=== PATIENT | female | born 2000 | race Caucasian/White ===

== ENCOUNTER 2022-04-01 14:07 | Outpatient (CLI) | payer BC, SELFPAY ==
[2022-04-01 22:44] LABS: HIV 1/2/P24 Combo Screen* Negative (Negative)
[2022-04-01 22:51] LABS: Hepatitis C Virus Antibody* Negative (Negative)
[2022-04-01 23:02] LABS: Hepatitis B Surface Antibody* Negative (Negative)
== END 2022-04-01 14:08 | disposition home or self-care (01) ==
PROVIDERS: PCP Family Medicine; Visit Provider Nurse Practitioner Family
DX: T14.8XXA Other injury of unspecified body region, initial encounter (principal)
CPT/HCPCS: 86703; 86706; 86803

== ENCOUNTER 2023-05-04 11:04 | Outpatient (CLI) | payer BC, SELFPAY ==
[2023-05-04 11:21] VITALS: BP 136/69; PULSE 91
[2023-05-04 11:22] VITALS: RESP 16; TEMP 36.7
[2023-05-04 11:36] LABS: Appearance Urine Clear (Clear); Bilirubin Urine Negative (Negative); Blood Urine Negative (Negative); Color Urine Yellow (Yellow); Glucose Urine Negative (Negative); Ketones Urine Negative (Negative); Leukocyte Esterase Urine 1+ (Negative); Nitrite Urine Negative (Negative); Protein Urine Negative (Negative); Urobilinogen Urine 0.2 (0.2-1.0)
[2023-05-04 11:50] LABS: RBC Urine 0-2 (0-2); Squamous Epithelial Cell Urine Few (None-Few)
[2023-05-04 11:54] LABS: Amphetamine Screen Urine Negative (Negative); Barbiturate Screen Urine Negative (Negative); Benzodiazepines Screen Urine Negative (Negative); Cannabinoid Screen Urine POSITIVE (Negative); Cocaine Screen Urine Negative (Negative); Methadone Screen Urine Negative (Negative); Methamphetamines Screen Urine Negative (Negative); Opiate Screen Urine Negative (Negative); Oxycodone Screen Urine Negative (Negative); Phencyclidine Screen Urine Negative (Negative); Tricyclic Antidepressant Urine Negative (Negative)
[2023-05-04 12:38] VITALS: BP 134/81; PULSE 92
[2023-05-04 12:45] LABS: Hematocrit 35.9 % (33.0-51.0); Hemoglobin* 12.3 gm/dL (12.0-16.0); Mean Corpuscular HGB Conc 34 gm/dL (32-36); Mean Corpuscular Hemoglobin 32 pg (26-34); Mean Corpuscular Volume 94 fL (80-100); Platelet Count* 485 K/uL (140-440); Red Blood Count 3.81 m/uL (4.00-5.20); White Blood Count* 15.39 K/uL (4.50-11.00)
[2023-05-04 12:46] LABS: Slide Review Reflex No
--- NOTE | 2023-05-04 12:54 | PC.OBNST ---
NST Note NST Note Start: 05/04/23 11:06 Freq: ONCE Status: Active Protocol: Document 05/04/23 12:52 BREANNA (Rec: 05/04/23 12:54 BREANNA [id number]) NST Note 1 Para (# of births) 0 EDC 05/26/23 Gestational Age In Weeks & Days 36 Weeks & 6 Days Patient Presented with Complaint(s) of Pain If Pain, describe location Right sided pain Reactive Yes Appropriate for Gestational Age Yes RN Nancy Brennan RN Date 05/04/23 Reactive Yes Appropriate for Gestational Age Yes DENIA Hart RN Date 05/04/23 OB NST charge Yes Complete NST Note via Write Note Yes The provider's electronic signature indicates the NST is reactive/appropriate for gestational age. *Note to provider: If an addendum is required, open the patient's chart and click on the note under the Nurse/Allied Health tab.
[2023-05-04 13:04] LABS: Alanine Aminotransferase* 18 U/L (4-35); Aspartate Amino Transferase* 20 U/L (12-35); Blood Urea Nitrogen* 5 mg/dL (5-24); Creatinine* 0.5 mg/dL (0.5-1.5); Estimated Glomerular Filt Rate 135 ml/min
[2023-05-04 13:33] LABS: Total Protein Urine 10 mg/dL
[2023-05-04 13:36] LABS: Creatinine Urine 71.1 mg/dL
--- NOTE | 2023-05-12 09:33 | PC.OBNST ---
NST Note NST Note Start: 05/04/23 11:06 Freq: ONCE Status: Discharge Protocol: Document 05/04/23 12:52 BREANNA (Rec: 05/04/23 12:54 BREANNA [id number]) NST Note 1 Para (# of births) 0 EDC 05/26/23 Gestational Age In Weeks & Days 36 Weeks & 6 Days Patient Presented with Complaint(s) of Pain If Pain, describe location Right sided pain Reactive Yes Appropriate for Gestational Age Yes RN Nancy Brennan RN Date 05/04/23 Reactive Yes Appropriate for Gestational Age Yes DENIA Hart RN Date 05/04/23 OB NST charge Yes Complete NST Note via Write Note Yes The provider's electronic signature indicates the NST is reactive/appropriate for gestational age. *Note to provider: If an addendum is required, open the patient's chart and click on the note under the Nurse/Allied Health tab.
== END 2023-05-04 12:45 | disposition home or self-care (01) ==
LOC: OB OUT 11:04 → OB 11:05
PROVIDERS: PCP Surgery; Visit Provider Family Medicine
DX: O47.03 False labor before 37 completed weeks of gestation, third trimester (principal); Z3A.36 36 weeks gestation of pregnancy
CPT/HCPCS: 36415; 59025; 80306; 81003; 81015; 82565; 82570; 84156; 84450; 84460; 84520; 85027; 87086; G0463

== ENCOUNTER 2023-05-18 10:04 | Inpatient (IN) | payer BC, SELFPAY ==
[2023-05-18] VITALS (37 sets, daily range): BP systolic 108–148; BP diastolic 58–89; PULSE 90–121; RESP 16–18; TEMP 36.5–37; O2SAT 94–100
[2023-05-18 09:57] LABS: Amnisure Rom* POSITIVE
[2023-05-18 10:42] LABS: Basophils Percent Auto 0.3 % (0.0-3.0); Eosinophils Percent Auto 1.8 % (0.0-7.0); Hematocrit 36.8 % (33.0-51.0); Hemoglobin* 12.5 gm/dL (12.0-16.0); Immature Granulocytes Pct Auto 1.1 %; Lymphocytes Percent Auto 14.6 % (20-44); Mean Corpuscular HGB Conc 34 gm/dL (32-36); Mean Corpuscular Hemoglobin 32 pg (26-34); Mean Corpuscular Volume 94 fL (80-100); Monocytes Percent Auto 5.9 % (0.0-11.0); Neutrophils Percent Auto 76.3 % (42.0-72.0); Platelet Count* 485 K/uL (140-440); RDW Coefficient of Variation % 13.1 % (11.5-15.5); Red Blood Count 3.93 m/uL (4.00-5.20)
[2023-05-18] MEDS: AMPICILLIN 2 GM in 0.9 % SODIUM CHLORIDE Mini-bag 100 ML IVPB (10:46)
[2023-05-18 10:51] LABS: Slide Review Reflex No
[2023-05-18 13:06] LABS: Amphetamine Screen Urine Negative (Negative); Barbiturate Screen Urine Negative (Negative); Benzodiazepines Screen Urine Negative (Negative); Cannabinoid Screen Urine POSITIVE (Negative); Cocaine Screen Urine Negative (Negative); Methadone Screen Urine Negative (Negative); Methamphetamines Screen Urine Negative (Negative); Opiate Screen Urine Negative (Negative); Oxycodone Screen Urine Negative (Negative); Phencyclidine Screen Urine Negative (Negative); Tricyclic Antidepressant Urine Negative (Negative)
--- NOTE | 2023-05-18 14:14 | P.OBHP_ITS ---
OB - H&P: HPI Labor/Induction History of Present Illness Date Seen: 05/18/23 Chief Complaint: The patient is a 22 year old 1 para 0 at 38.6 weeks gestation by LMP and 1st trimester ultrasound, who presents with PROM. Chief complaint: Maternity : 1 Para: 0 Narrative: Berkley Streeter is a 22 year old female who has had a complicated by marijuana use, history of HSV, chlamydia during , and positive GBS status. She felt a sudden gush of clear fluid at 0700 today. Otherwise has been feeling fine. No contractions. No recent symptoms. Good movement. Has been on HSV prophylaxis since 37 weeks. No HSV lesions during . History of Present care: good care Ultrasounds: normal 1st trimester US Medical complications: none Labs Blood type: O (+) positive Rubella: immune RPR/VDLR: nonreactive GBS status: positive HBsAG: negative Review of Systems Status of ROS: Reports: 10 or more systems reviewed and unremarkable except as noted in History and below Meds Home Medications and Allergies Home Medications Medication Instructions Recorded Confirmed Type vitamin with calcium 1 tab PO DAILY 05/04/23 05/18/23 History no.72-iron 27 mg-folic acid 1 mg tablet ( Vitamins Plus Low Iron) acyclovir 400 mg tablet 400 mg PO 3XD 05/18/23 05/18/23 History Allergies Allergy/AdvReac Type Severity Reaction Status Date / Time No Known Drug Allergies Allergy Verified 05/04/23 11:18 OB - H&P: Exam Physical Exam: Vital signs: Temp Pulse Resp BP Pulse Ox 97.7 F 100 16 136/76 96 05/18/23 12:15 05/18/23 11:01 05/18/23 11:28 05/18/23 11:01 05/18/23 09:19 Constitutional: Constitutional: no acute distress Routine Neck Exam: Neck: Present full ROM Routine Exam: Perineum Description: Normal Comments: No blisters or lesions noted on vaginal exam Detailed Labor and Delivery Exam: Patient Gravid: Yes Dilation (cm): 1 Effacement (%): 75 Comments: per RN Fetus (Single): Amniotic Membrane Status: SROM Amniotic Membrane Fluid Description: Clear Monitor Accelerations: Present Monitor Decelerations: None Intermediate Variability: Moderate (6-25) OB - Results Labs Labs: Short CBC 02/15/24 Range/Units 10:32 WBC 13.50 H (4.50-11.00) K/uL Hgb 12.5 (12.0-16.0) gm/dL Hct 36.8 (33.0-51.0) % Plt Count 485 H (140-440) K/uL OB - Problem Based A/P Additional Plan (1) GBS (group B Streptococcus carrier), +RV culture, currently : Status: Acute (2) PROM (premature rupture of membranes): Status: Acute Plan Confirmed SROM on admission with positive amnisure. Ampicillin started on admission. 2nd dose due now. After 2nd dose starts, will start pitocin as she is still not really elias. Discussed risks and benefits of this plan. Confirmed no HSV lesions on exam. Will likely do epidural when labor starts. Fetus cephalic by bedside US. EFW 3500g.
[2023-05-18] MEDS: LACTATED RINGERS 1000 ML 1,000 ML 125 ML IV (14:37)
[2023-05-18] MEDS: OXYTOCIN 30 unit/500 ML in NS 30 UNIT/500 ML BAG IVPB (14:38)
[2023-05-18] MEDS: AMPICILLIN 1 GM in 0.9 % SODIUM CHLORIDE Mini-bag 100 ML IVPB ×3 (14:38→22:48)
[2023-05-18 20:23] LABS: Hematocrit 37.5 % (33.0-51.0); Hemoglobin* 12.6 gm/dL (12.0-16.0); Mean Corpuscular HGB Conc 34 gm/dL (32-36); Mean Corpuscular Hemoglobin 32 pg (26-34); Mean Corpuscular Volume 94 fL (80-100); Platelet Count* 505 K/uL (140-440); White Blood Count* 16.16 K/uL (4.50-11.00)
[2023-05-18 20:28] LABS: Slide Review Reflex No
[2023-05-18] MEDS: LACTATED RINGERS 1000 ML 1,000 ML 999 ML IV (20:44)
[2023-05-18 20:48] LABS: Alanine Aminotransferase* 18 U/L (4-35); Aspartate Amino Transferase* 21 U/L (12-35); Blood Urea Nitrogen* 8 mg/dL (5-24); Creatinine* 0.5 mg/dL (0.5-1.5); Est. Creatinine Clearance* 189.23; Estimated Glomerular Filt Rate 135 ml/min
[2023-05-18] MEDS: LIDOCAINE 2% (PF) 5 ML VIAL EPIDURAL (21:03)
[2023-05-18] MEDS: ROPIVACAINE 0.2% 100 ml 100 ML 12 MG EPIDURAL (21:04)
--- NOTE | 2023-05-18 21:14 | PM.ANBPRC ---
[facility] Medical History (Updated 05/18/23 @ 14:39 by Last Barron MD) Chlamydia infection affecting ?O98.819 - Other maternal infectious and parasitic diseases complicating , unspecified trimester (ICD-10) ?A74.9 - Chlamydial infection, unspecified (ICD-10) HSV (herpes simplex virus) infection ?B00.9 - Herpesviral infection, unspecified (ICD-10) Needle stick injury Puncture wound ?T14.8XXA - Other injury of unspecified body region, initial encounter (ICD-10) Social History What is your current living situation?: I presently have a place to live Problems where you live: no known problems In the past 12 months, utilities in danger of being shut off: no In past 12 months, lack of transportation kept you from medical appts, meetings, work, or getting things needed for daily living: no In the past 12 mos, have been you worried that your food would run out before you had money to buy more?: never true In the past 12 mos, the food you bought just didn't last and you didn't have money to buy more?: never true Smoking Status: Former smoker How often does anyone, including family, friends and others, physically hurt you: never How often does anyone, including family, friends and others, insult or talk down to you: never How often does anyone, including family, friends and others, threaten you with harm: never How often does anyone, including family, friends and others, scream or curse at you: never Meds Home Medications and Allergies Home Medications Medication Instructions Recorded Confirmed Type vitamin with calcium 1 tab PO DAILY 05/04/23 05/18/23 History no.72-iron 27 mg-folic acid 1 mg tablet ( Vitamins Plus Low Iron) acyclovir 400 mg tablet 400 mg PO 3XD 05/18/23 05/18/23 History Allergies Allergy/AdvReac Type Severity Reaction Status Date / Time No Known Drug Allergies Allergy Verified 05/04/23 11:18 Results Labs Labs: Laboratory Results - last 24 hr 05/18/23 05/18/23 05/18/23 09:35 10:32 12:47 WBC 13.50 H RBC 3.93 L Hgb 12.5 Hct 36.8 MCV 94 MCH 32 MCHC 34 RDW Coeff of Ben 13.1 Plt Count 485 H Neut % (Auto) 76.3 H Lymph % (Auto) 14.6 L Haines % (Auto) 5.9 Eos % (Auto) 1.8 Baso % (Auto) 0.3 Neut # (Auto) 10.30 H Lymph # (Auto) 2.00 Haines # (Auto) 0.80 Eos # (Auto) 0.20 Baso # (Auto) 0.00 Abs Immat Gran (auto) 0.10 Imm/Tot Granulo (auto) 1.1 BUN Creatinine Estimated Creat Clear Estimated GFR AST ALT Membrane Rupture POSITIVE Urine Opiates Screen Negative Ur Oxycodone Screen Negative Urine Methadone Screen Negative Ur Barbiturates Screen Negative U Tricyclic Antidepress Negative Ur Phencyclidine Scrn Negative Ur Amphetamines Screen Negative U Methamphetamines Scrn Negative U Benzodiazepines Scrn Negative Urine Cocaine Screen Negative U Marijuana (THC) Screen POSITIVE A Ur Drug Screen Comment See Note Blood Type O Positive Antibody Screen NEGATIVE 05/18/23 20:18 WBC 16.16 H RBC 4.00 Hgb 12.6 Hct 37.5 MCV 94 MCH 32 MCHC 34 RDW Coeff of Ben Plt Count 505 H Neut % (Auto) Lymph % (Auto) Haines % (Auto) Eos % (Auto) Baso % (Auto) Neut # (Auto) Lymph # (Auto) Haines # (Auto) Eos # (Auto) Baso # (Auto) Abs Immat Gran (auto) Imm/Tot Granulo (auto) BUN 8 Creatinine 0.5 Estimated Creat Clear 189.23 Estimated GFR 135 AST 21 ALT 18 Membrane Rupture Urine Opiates Screen Ur Oxycodone Screen Urine Methadone Screen Ur Barbiturates Screen U Tricyclic Antidepress Ur Phencyclidine Scrn Ur Amphetamines Screen U Methamphetamines Scrn U Benzodiazepines Scrn Urine Cocaine Screen U Marijuana (THC) Screen Ur Drug Screen Comment Blood Type Antibody Screen Vital Signs Vital Signs: Last Vital Signs Temp 98.6 F 05/18/23 20:39 Pulse 99 05/18/23 21:10 Resp 16 05/18/23 20:39 BP 141/77 H 05/18/23 21:10 Pulse Ox 99 05/18/23 21:08 Weight: 95.1 kg Height: 177.8 cm Anesthesia Procedures Epidural Insertion Patient Location: OB Start Time: 20:45 Stop Time: 21:15 Start Date: 05/18/23 Stop Date: 05/18/23 Reason for Block: procedure for pain Patient Position: sitting Performed By: Roger Choi Preanesthetic Checklist: IV checked, risks and benefits discussed, monitors and equipment checked, pre-op evaluation, timeout performed and anesthesia consent Prep: chlorhexidine gluconate Monitoring: blood pressure monitoring, continuous pulse oximetry and heart rate Approach: midline Vertebral Space: lumbar (1-5) Epidural Technique: BEATRIZ saline Needle Type: Tuohy needle Injection Technique: continuous catheter Needle gauge: 17 Needle Length (cm): 10 cm Needle Insertion Depth (cm): 6 Catheter Gauge: 19 Catheter Type: multi-orifice Catheter at skin depth (cm): 12 Test Dose Result: negative and lidocaine 1.5% with epinephrine 1 to 200,000
[2023-05-19] VITALS (55 sets, daily range): BP systolic 123–158; BP diastolic 60–93; PULSE 86–127; RESP 16–18; TEMP 36.6–37.1; O2SAT 81–100
[2023-05-19] MEDS: ONDANSETRON 2 MG/ML inj 4 MG IV (01:00)
--- NOTE | 2023-05-19 01:18 | PM.OBPNL ---
Subjective Date Seen: 05/19/23 Narrative: Pitocin started after 2nd dose of antibiotics as she wasn't elias on her own. She got quite a bit more uncomfortable through the day. She tried nitrous but that didn't really help. She got an epidural and felt a lot better. She progressed slowly through the day and was found to be complete after 0030. Objective Exam: Cervix complete per RN Vital Signs: Last Vital Signs Temp 98.6 F 05/18/23 23:17 Pulse 127 H 05/19/23 01:03 Resp 16 05/18/23 20:39 BP 135/67 05/19/23 01:03 Pulse Ox 98 05/19/23 01:16 Contractions Monitor mode: External Contraction pattern: Regular Assessment Assessment: active labor Status: Category l Heart Rate Baseline: 130 Monitor Accelerations: Present Monitor Decelerations: None Tracing Comments: Category 1 through most of the 1st stage Plan Plan: Complete and ready to push. Anticipate soon.
[2023-05-19] MEDS: AMPICILLIN 1 GM in 0.9 % SODIUM CHLORIDE Mini-bag 100 ML IVPB (02:50)
--- NOTE | 2023-05-19 03:43 | W.PM.VAGDEL1 ---
Procedure Procedure Done: Global Intrapartal Events: ROM >18 Hours Delivery augmentation: pitocin Delivery monitor: external FHT Route of delivery: Laceration description: Vaginal - 2nd Degree Delivery repair: Vicryl Estimated blood loss (mL): 300 Anesthesia type: Epidural Disposition: floor Narrative: The patient is a 22 year-old admitted on 05/18 at 38 Weeks, 6 Days gestation for PROM.? Cervical exam on admission was 1 cm/75 % effaced/-2 station with membranes ruptured in vertex presentation.? Contractions were not present on admission.? heart rate demonstrated baseline 135 bpm with moderate variability, + accelerations, - decelerations; a category 1 tracing.? PROM at home with clear fluid at 0700, confirmed by amnisure. ? Labor Analgesia:? Epidural ? Pitocin:? Yes, for augmentation ? Labor onset:? 1900 ? Complete:? 0030 ? Pushing:? 0046 ? heart tones during second stage were generally category 1 but she did have decelerations with pushing into the low 100s and sometimes just below 100, generally with good recovery and continued variability through 2nd stage. ? At 0310 a viable male infant delivered in vertex presentation over 2nd degree midline laceration and superficial nonbleeding periurethral lacerations via spontaneous vaginal delivery.? Infant was placed on maternal abdomen.? Cord was clamped and cut after a 2 minute delay.? Nose and mouth were bulb suctioned.? weight pending.? 8 at 1 minute and 9 at 5 minutes.? Shoulder dystocia: no.? Nuchal cord: no. ? Placenta delivered spontaneously and complete at 0313 with a 3 vessel cord. ? Mother and infant were stable after delivery. ? Lacerations:? 2nd degree midline, shallow laceration but bleeding, repaired with 3 interrupted 3-0 vicryl sutures. ? Blood loss: 300 mL. Blood loss measurement type: EBL ? Sponge and needles counts are correct.
[2023-05-19] MEDS: DOCUSATE SODIUM 100 MG CAPSULE PO (09:23)
--- NOTE | 2023-05-19 10:45 | PC.SOCIAL ---
Discharge planning: forestry worker completed a CPS report due to pt's use of marijuana during and the infant's urine testing positive for marijuana today. forestry worker talked to Courtney at [facility] who took the report. forestry worker faxed the written report to [facility] CPS at #[phone]. Social work to follow-up as needed.
--- NOTE | 2023-05-19 14:11 | PM.ANPOST ---
Post Anesthesia Note Post Anesthesia Note Patient seen: Inpatient Respiratory Status: adequate Cardiovascular Status: adequate Mental Status: baseline Pain: adequate Temp: baseline Anesthetic awareness: N/A Complications: none Follow care: none
[2023-05-20 01:11] VITALS: BP 118/72; PULSE 79; RESP 16; TEMP 36.8; O2SAT 95
[2023-05-20 03:57] VITALS: BP 128/73; PULSE 89; RESP 16; TEMP 36.7; O2SAT 97
[2023-05-20 04:09] LABS: Rapid Plasma Reagin (RPR) Non Reactive (Non Reactive)
[2023-05-20 07:47] LABS: Hemoglobin* 13.3 gm/dL (12.0-16.0)
[2023-05-20 08:35] VITALS: BP 119/77; PULSE 82; RESP 16; TEMP 36.7; O2SAT 97
[2023-05-20] MEDS: DOCUSATE SODIUM 100 MG CAPSULE PO (08:40)
--- NOTE | 2023-05-20 09:38 | P.OBPN_ITS ---
OB - PN:Subj Subjective Date Seen: 05/20/23 Interval history: Doing well except some blood in the urine. Otherwise asymptomatic. Patient comments OB post-: no complaints and pain well controlled [place] status: OB - PN: Obj Exam Physical Exam: Vital signs: Temp Pulse Resp BP Pulse Ox O2 Del Method 98.0 F 89 16 128/73 97 Room Air 05/20/23 03:57 05/20/23 03:57 05/20/23 03:57 05/20/23 03:57 05/20/23 03:57 05/20/23 03:57 Constitutional: Constitutional: no acute distress Routine Abdominal Exam: Fundus: Present firm Routine Extremities Exam: Extremities: Absent calf tenderness or pedal edema OB - PN: Obj Data Labs Labs: Laboratory Results - last 24 hr 05/18/23 05/20/23 10:32 07:35 Hgb 13.3 RPR Screen Non Reactive OB - PN: A/P Delivery Assessment and Plan (1) GBS (group B Streptococcus carrier), +RV culture, currently : Status: Acute (2) PROM (premature rupture of membranes): Status: Acute Plan day: 1 Plan: routine care Comments: She has had a couple blood pressures > 140/90 but come down on recheck. Will continue to monitor. Consider treatment if BP persistently higher. Will also check urine next time to monitor for signs of infection vs ongoing bleeding issues. Plan to d/c tomorrow.
[2023-05-20 11:20] VITALS: BP 131/69; PULSE 84; RESP 16; TEMP 36.5; O2SAT 97
[2023-05-20 15:30] VITALS: BP 126/78; PULSE 78; RESP 18; TEMP 36.8; O2SAT 98
[2023-05-20 19:49] VITALS: BP 139/88; PULSE 78; RESP 16; TEMP 36.7; O2SAT 100
[2023-05-21 00:14] VITALS: BP 123/80; PULSE 88; RESP 18; TEMP 36.3
[2023-05-21 04:27] VITALS: BP 119/83; PULSE 88; RESP 18; TEMP 37; O2SAT 98
[2023-05-21 07:33] VITALS: BP 118/75; PULSE 83; RESP 16; TEMP 36.9; O2SAT 97
--- NOTE | 2023-05-21 09:14 | P.DS_ITS ---
DS: Providers Provider Date Seen: 05/21/23 Date of admission: 05/18/23 10:04 Primary care physician: Last Barron MD Admitting Clinician: Last Barron MD Consults: 05/18/23 12:23 Consult to Stores Clerk [CONS] Routine Comment: Reason for Consult:: Substance Abuse Screening Attending Physician on discharge: Last Barron MD DS: Diagnosis Discharge Diagnosis (1) PROM (premature rupture of membranes): Status: Acute (2) Vaginal delivery: Status: Acute Exam Const: Vital Signs, click to edit/add: Vital Signs - 24 hr 05/20/23 11:20 05/20/23 15:30 05/20/23 19:49 Temperature 97.7 F 98.3 F 98.1 F Pulse Rate [Apical ] 84 78 78 Respiratory Rate 16 18 16 Blood Pressure [Le ft Arm] 131/69 126/78 139/88 Pulse Oximetry 97 98 100 Oxygen Delivery Me thod Room Air Room Air Room Air 05/21/23 00:14 05/21/23 04:27 05/21/23 07:33 Temperature 97.4 F L 98.6 F 98.4 F Pulse Rate [Apical ] 88 88 83 Respiratory Rate 18 18 16 Blood Pressure [Le ft Arm] 123/80 119/83 118/75 Pulse Oximetry 98 97 Oxygen Delivery Me thod Room Air Room Air Room Air Documenting provider has reviewed patient's vital signs: yes Common normals: no apparent distress General appearance: cooperative and comfortable Resp: Common normals: normal respiratory effort, no retractions and clear to auscultation bilaterally Auscultation: clear to auscultation bilaterally Cardio: Common normals: regular rate, regular rhythm, S1 normal heart sound, S2 normal heart sound and no murmurs Rate: regular rate Rhythm: regular rhythm Heart sounds: S1 normal and S2 normal GI: Common normals: soft to palpation Palpation: soft; non-tender : Common normals: no CVA tenderness Bladder/kidney exam: no CVA tenderness Uterus: U/2 Lochia: scant Back & Pelvis: Common normals: no CVA tenderness Extremity: Common normals: no pedal edema OB - DS: Summary Hospital Course Hospital Course: The patient is a 22 year old G1 P 1 at 39 weeks gestation that was admitted to the Center on 05/18/23 for PROM. She had an uncomplicated/complicated vaginal delivery. She delivered a viable male . She is breast feeding. the patient has done well. Peripartum Data delivery method: Vaginal Laceration description: Perineal - 2nd Degree complications: none [place] Gender: Male Discharge Plan: Home Time Spent with Patient Time attestation: Total time spent providing and/or coordinating discharge services: Time spent: Less than 30 minutes Discharge Plan Discharge Disposition: Home, Self-Care Date of Admission: 05/18/23 10:04 Primary Care Provider: Last Barron Condition: Stable Anticipated Discharge Date/Time: 05/21/23 09:19 Discharge Medications: Continued Vitamin Plus Low Iron 27 mg iron- 1 mg tablet 1 tab PO DAILY Discontinued acyclovir 400 mg tablet 400 mg PO 3XD Discharge Orders: Discharge Order (Routine); Ordered 05/21/23 Ordered By: Last Barron Patient Education: OB Over the Counter Medication Information, OB Vaginal/Breast Feeding Activity Level: Activity as Tolerated Discharge Diet: Regular Follow Up Appointments: Last Barron MD [Primary Care Provider] - (Schedule in 6 weeks) Forms: [employer] Info Instructions
== END 2023-05-21 12:01 | disposition home or self-care (01) | DRG 560 ==
LOC: OB OUT 10:04 → OB 10:04
PROVIDERS: Family Medicine; Admitting Provider Surgery; PCP Surgery; Visit Provider Surgery
DX: O42.02 Full-term premature rupture of membranes, onset of labor within 24 hours of rupture (principal); O70.1 Second degree perineal laceration during delivery; O99.824 Streptococcus B carrier state complicating childbirth; O98.32 Other infections with a predominantly sexual mode of transmission complicating childbirth; A56.8 Sexually transmitted chlamydial infection of other sites; A60.00 Herpesviral infection of urogenital system, unspecified; O99.324 Drug use complicating childbirth; F12.90 Cannabis use, unspecified, uncomplicated; Z3A.38 38 weeks gestation of pregnancy; Z37.0 Single live birth
CPT/HCPCS: 01967; 36415; 76815; 80306; 82565; 82570; 84112; 84156; 84450; 84460; 84520; 85018; 85025; 85027; 86592; 86850; 86900; 86901; A9270; J0290; J2371; J2405; J2795; J7120

== ENCOUNTER 2024-03-20 14:30 | Outpatient (CLI) | payer MEDICAID, SELFPAY | END 2024-03-20 14:31 | disposition home or self-care (01) | LOC: NFLDUCREF 15:33 | PROVIDERS: PCP Surgery; Visit Provider Nurse Practitioner Family | DX: J02.9 Acute pharyngitis, unspecified (principal) | CPT/HCPCS: 87070 ==